=== PATIENT | male | born 1950 | race African-American/Black ===

== ENCOUNTER 2016-09-30 08:13 | Emergency (ER) | payer OTHER ==
[~2016-09-30] VITALS: Ht 162.6 cm; Wt 58.0 kg
[~2016-09-30 08:13] MED LIST: CEPH500C3 PO; LISI-360 PO; METF500 PO; NAPR500 PO; ZOCO40TA PO
[2016-09-30 08:14] VITALS: BP 147/79; PULSE 76; RESP 15; TEMP 98.1; O2SAT 98
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
--- NOTE | 2016-09-30 09:20 | RADRPT ---
EXAM DATE/TIME: 09/30/2016 08:51 [facility] COMPARISON: No previous studies available for comparison. INDICATIONS : Right foot pain. MEDICAL HISTORY : None. SURGICAL HISTORY : None. ENCOUNTER: Initial ACUITY: 1 day PAIN SCORE: 10/10 LOCATION: Right Foot. FINDINGS: Three view examination of the right foot demonstrates no soft tissue swelling, dislocation, or fractu re. The tarsal bones appear intact. The interphalangeal and metatarsophalangeal joints are intact. The calcaneus is intact. Bony mineralization is normal. CONCLUSION: Negative for fracture or dislocation. Followup in 7-10 days is suggested if symptoms persist.. Ramon Guevara MD FACR on September 30, 2016 at 9:17 Board Certified Radiologist. This report was verified electronically.
[2016-09-30] MEDS ORDERED: NAPR375T PO (09:25)
== END 2016-09-30 09:39 | disposition home or self-care (01) ==
LOC: NEPB 08:13
DX: S93.601A Unspecified sprain of right foot, initial encounter (principal); I10 Essential (primary) hypertension; Y99.9 Unspecified external cause status; F17.210 Nicotine dependence, cigarettes, uncomplicated; W18.30XA Fall on same level, unspecified, initial encounter; Y93.9 Activity, unspecified; Y92.9 Unspecified place or not applicable; Z91.81 History of falling
CPT/HCPCS: 73630; 99283

== ENCOUNTER 2016-10-26 10:02 | Emergency (ER) | payer OTHER ==
[~2016-10-26] VITALS: Ht 170.2 cm; Wt 60.0 kg
[~2016-10-26 10:02] MED LIST changes: -CEPH500C3 PO; -LISI-360 PO; -METF500 PO; +NAPR375T PO; -NAPR500 PO; -ZOCO40TA PO
[2016-10-26 10:04] VITALS: BP 152/85; PULSE 71; RESP 12; TEMP 98.2; O2SAT 100
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
--- NOTE | 2016-10-26 12:35 | RADRPT ---
EXAM DATE/TIME: 10/26/2016 12:37 [facility] COMPARISON: No previous studies available for comparison. INDICATIONS : Right knee pain after falling several days ago. MEDICAL HISTORY : None. SURGICAL HISTORY : None. ENCOUNTER: Initial ACUITY: 3 days PAIN SCORE: 5/10 LOCATION: Right anterior knee. FINDINGS: Four view examination of the right knee demonstrates no evidence of fracture or dislocation. Bony mi neralization is normal. The articular surfaces are intact. The suprapatellar soft tissues have a no rmal configuration. CONCLUSION: Negative trauma study. Omkar Connors MD on October 26, 2016 at 12:33 Board Certified Radiologist. This report was verified electronically.
== END 2016-10-26 13:04 | disposition home or self-care (01) ==
LOC: NEPB 10:02
DX: M25.561 Pain in right knee (principal); F17.210 Nicotine dependence, cigarettes, uncomplicated
CPT/HCPCS: 73564; 99283

== ENCOUNTER 2016-11-08 15:03 | Emergency (ER) | payer OTHER ==
[~2016-11-08] VITALS: Ht 170.2 cm; Wt 60.0 kg
[2016-11-08 15:13] VITALS: BP 158/90; PULSE 73; RESP 15; TEMP 98.5; O2SAT 97
[2016-11-08] MEDS ORDERED: BACT2OIN TOPICAL (15:21)
[2016-11-08] MEDS ORDERED: AUGM875T PO (15:21)
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
[2016-11-08] MEDS ORDERED: TETANUS/DIPHTHERIA TOXOID ADULT 0.5 ML VIAL IM ONE (15:30)
[2016-11-08] MEDS ORDERED: AMOXICILLIN/CLAVULANATE K 875 MG TAB PO ONE (15:30)
== END 2016-11-08 15:41 | disposition home or self-care (01) ==
LOC: NETRI 15:03
DX: S30.812A Abrasion of penis, initial encounter (principal); I10 Essential (primary) hypertension; F17.210 Nicotine dependence, cigarettes, uncomplicated; W50.4XXA Accidental scratch by another person, initial encounter; Y93.89 Activity, other specified; Z23 Encounter for immunization
CPT/HCPCS: 90471; 90714

== ENCOUNTER 2016-11-14 12:46 | Emergency (ER) | payer OTHER ==
[~2016-11-14 12:46] MED LIST changes: +AUGM875T PO; +BACT2OIN TOPICAL; -NAPR375T PO
[2016-11-14 12:48] VITALS: BP 169/89; PULSE 74; RESP 16; TEMP 98.5; O2SAT 98
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
[2016-11-14 14:54] LABS: AUTOMATED NEUTROPHIL # 3.3 TH/MM3 (1.8-7.7); BASOPHIL % 0.7 % (0.0-2.0); EOSINOPHIL # 0.1 TH/MM3 (0-0.4); EOSINOPHIL % 1.9 % (0.0-4.0); HEMATOCRIT 39.2 % (39.0-51.0); HEMO FLAGS DIFF FINAL; LYMPH % 30.8 % (9.0-44.0); LYMPHOCYTE # 1.8 TH/MM3 (1.0-4.8); MEAN CELL VOLUME 91.8 FL (80.0-100.0); MEAN CORPUSCULAR HEMOGLOBIN 30.8 PG (27.0-34.0); MEAN CORPUSCULAR HGB CONC 33.5 % (32.0-36.0); MONO % 9.1 % (0.0-8.0); NEUT % 57.5 % (16.0-70.0); PLATELET COUNT 309 TH/MM3 (150-450); RED BLOOD COUNT 4.27 MIL/MM3 (4.50-5.90); RED CELL DISTRIBUTION WIDTH 12.9 % (11.6-17.2); WHITE BLOOD COUNT 5.7 TH/MM3 (4.0-11.0)
[2016-11-14 15:01] LABS: BLOOD, URINE NEG (NEG); COMMENT (UR) CULT NOT INDICATED; CULTURE IF INDICATED CULT NOT INDICATED; GLUCOSE,URINE NEG (NEG); KETONE, URINE NEG (NEG); MUCUS URINE FEW /lpf (OCC); NITRITE,URINE NEG (NEG); URINE COLOR YELLOW (YELLW/STRAW)
[2016-11-14 15:08] LABS: ALT (GPT) 28 U/L (12-78); ANION GAP 7 MEQ/L (5-15); AST (GOT) 30 U/L (15-37); BICARBONATE 32.4 MEQ/L (21.0-32.0); BLOOD UREA NITROGEN 11 MG/DL (7-18); CHLORIDE 105 MEQ/L (98-107); GLOMERULAR FILTRATION RATE 93 ML/MIN (>89); POTASSIUM 3.9 MEQ/L (3.5-5.1); SODIUM (NA) 144 MEQ/L (136-145)
[2016-11-14 15:10] LABS: ALKALINE PHOSPHATASE 118 U/L (45-117); TOTAL BILIRUBIN ADULT 0.2 MG/DL (0.2-1.0)
--- NOTE | 2016-11-14 16:52 | RADRPT ---
EXAM DATE/TIME: 11/14/2016 15:56 [facility] COMPARISON: No previous studies available for comparison. INDICATIONS : Diarrhea for 5 days. MEDICAL HISTORY : None. SURGICAL HISTORY : None. ENCOUNTER: Initial ACUITY: 4 - 6 days PAIN SCORE: 0/10 LOCATION: Bilateral lower quadrant abdomen FINDINGS: Single frontal supine view of the abdomen demonstrates air within small and large bowel in a nonobstr uctive pattern. No organomegaly or abnormal calcifications are seen. No abnormal mass effect is appre ciated. The visualized bones demonstrates no abnormality. CONCLUSION: No acute abdominal abnormality is identified. Edmundo Casiano MD on November 14, 2016 at 16:50 Board Certified Radiologist. This report was verified electronically.
[2016-11-14] MEDS ORDERED: CEPH-460 PO (17:18)
[2016-11-14] MEDS ORDERED: BACT800T5 PO (17:18)
[2016-11-14] MEDS ORDERED: LOMO2.5T PO (17:18)
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
[2016-11-14] MEDS ORDERED: SULFAMETHOXAZOLE-TRIMETHOPRIM DS 800-160 MG TAB PO ONE (17:30)
[2016-11-14] MEDS ORDERED: CEPHALEXIN MONOHYDRATE 500 MG CAP PO ONE (17:30)
== END 2016-11-14 18:11 | disposition home or self-care (01) ==
LOC: NEPA 12:46
DX: L03.116 Cellulitis of left lower limb (principal); R19.7 Diarrhea, unspecified; I10 Essential (primary) hypertension; Z72.0 Tobacco use; Z86.73 Personal history of transient ischemic attack (TIA), and cerebral infarction without residual deficits
CPT/HCPCS: 74000; 80053; 81001; 85025; 99284

== ENCOUNTER 2017-01-13 10:00 | Emergency (ER) | payer OTHER ==
[~2017-01-13] VITALS: Ht 167.6 cm; Wt 60.0 kg
[~2017-01-13 10:00] MED LIST changes: -AUGM875T PO; -BACT2OIN TOPICAL; +BACT800T5 PO; +CEPH-460 PO; +LOMO2.5T PO
[2017-01-13 10:01] VITALS: BP 174/92; PULSE 65; RESP 14; TEMP 97.9; O2SAT 97
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
--- NOTE | 2017-01-13 10:47 | RADRPT ---
EXAM DATE/TIME: 01/13/2017 10:45 [facility] COMPARISON: No previous studies available for comparison. INDICATIONS : Right foot pain, 2nd digit. MEDICAL HISTORY : None. SURGICAL HISTORY : None. ENCOUNTER: Initial ACUITY: 1 month PAIN SCORE: 10/10 LOCATION: Right Foot, 2nd digit. FINDINGS: Two view examination of the right foot demonstrates no soft tissue swelling, dislocation, or fracture . The calcaneus is intact. Bony mineralization is normal. CONCLUSION: Unremarkable limited examination of the right foot. Edmundo Childs MD on January 13, 2017 at 10:44 Board Certified Radiologist. This report was verified electronically.
[2017-01-13] MEDS ORDERED: BACT800T5 PO (11:36)
== END 2017-01-13 11:48 | disposition home or self-care (01) ==
LOC: NEPD 10:00
DX: L08.9 Local infection of the skin and subcutaneous tissue, unspecified (principal)
CPT/HCPCS: 73620; 99283

== ENCOUNTER 2017-02-04 16:22 | Emergency (ER) | payer OTHER ==
[~2017-02-04] VITALS: Ht 177.8 cm; Wt 75.0 kg
[2017-02-04 16:32] VITALS: BP 152/80; PULSE 88; RESP 16; TEMP 98.2; O2SAT 99
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
[2017-02-04] MEDS ORDERED: ACETAMINOPHEN 325 MG TAB PO ONE (17:30)
--- NOTE | 2017-02-04 18:03 | RADRPT ---
EXAM DATE/TIME: 02/04/2017 17:02 [facility] COMPARISON: No previous studies available for comparison. INDICATIONS : Right foot, second digit pain and swelling. Possible infection. MEDICAL HISTORY : None. SURGICAL HISTORY : None. ENCOUNTER: Initial ACUITY: 1 week PAIN SCORE: 10/10 LOCATION: Right foot, second digit. FINDINGS: There is some soft-tissue swelling about the 2nd digit. I see no obvious bony destruction to suggest osteomyelitis at this point. There is some subcutaneous calcifications about the 3rd digit again without bony destruction. CONCLUSION: Soft-tissue swelling calcification with swelling without bony destruction. Ramon Guevara MD FACR on February 04, 2017 at 17:59 Board Certified Radiologist. This report was verified electronically.
[2017-02-04] MEDS ORDERED: BACT800T5 PO (18:21)
== END 2017-02-04 18:41 | disposition home or self-care (01) ==
LOC: NEPK 16:22
DX: S99.921A Unspecified injury of right foot, initial encounter (principal); S50.311A Abrasion of right elbow, initial encounter; I10 Essential (primary) hypertension; F17.200 Nicotine dependence, unspecified, uncomplicated; Z86.79 Personal history of other diseases of the circulatory system; W01.0XXA Fall on same level from slipping, tripping and stumbling without subsequent striking against object, initial encounter
CPT/HCPCS: 73660; 99283

== ENCOUNTER 2017-03-22 08:48 | Emergency (ER) | payer OTHER ==
[~2017-03-22] VITALS: Ht 177.8 cm; Wt 57.0 kg
[~2017-03-22 08:48] MED LIST changes: -CEPH-460 PO; -LOMO2.5T PO
[2017-03-22 08:49] VITALS: BP 149/76; PULSE 76; RESP 20; TEMP 98.8; O2SAT 99
[2017-03-22] MEDS ORDERED: ACETAMINOPHEN 325 MG TAB PO ONE (09:30)
[2017-03-22 10:05] VITALS: BP 157/75; PULSE 78; RESP 16; O2SAT 98
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
--- NOTE | 2017-03-22 11:28 | RADRPT ---
EXAM DATE/TIME: 03/22/2017 10:32 [facility] COMPARISON: FOOT RIGHT LIMITED (2VWS), January 13, 2017, 10:45. FOOT RIGHT COMPLETE ([id number]), September 30, 2016, 8:5 1. INDICATIONS : Right foot pain post fall. MEDICAL HISTORY : None. SURGICAL HISTORY : None. ENCOUNTER: Initial ACUITY: 1 day PAIN SCORE: 6/10 LOCATION: Right Foot FINDINGS: Three view examination of the right foot demonstrates no soft tissue swelling, dislocation, or fractu re. The tarsal bones appear intact. The interphalangeal and metatarsophalangeal joints are intact. The calcaneus is intact. Bony mineralization is normal. CONCLUSION: Unremarkable examination of the right foot. Darian Downing Jr., MD on March 22, 2017 at 11:24 Board Certified Radiologist. This report was verified electronically.
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
--- NOTE | 2017-03-22 11:45 | RADRPT ---
EXAM DATE/TIME: 03/22/2017 10:50 [facility] COMPARISON: No previous studies available for comparison. INDICATIONS : Right shoulder pain post fall. MEDICAL HISTORY : None. SURGICAL HISTORY : None. ENCOUNTER: Initial ACUITY: 1 day PAIN SCORE: 6/10 LOCATION: Right Shoulder FINDINGS: No definite fractures, or dislocations are identified. No definite lytic or sclerotic lesion is seen . The joint space is well maintained. CONCLUSION: Unremarkable study. Mahendra Whipple MD on March 22, 2017 at 11:43 Board Certified Radiologist. This report was verified electronically.
== END 2017-03-22 12:51 | disposition home or self-care (01) ==
LOC: NEPD 08:48
DX: S50.312A Abrasion of left elbow, initial encounter (principal); S60.511A Abrasion of right hand, initial encounter; M25.511 Pain in right shoulder; M79.671 Pain in right foot; I69.951 Hemiplegia and hemiparesis following unspecified cerebrovascular disease affecting right dominant side; I10 Essential (primary) hypertension; F17.200 Nicotine dependence, unspecified, uncomplicated; W19.XXXA Unspecified fall, initial encounter
CPT/HCPCS: 73030; 73130; 73630; 99284

== ENCOUNTER 2017-03-31 13:00 | Emergency (ER) | payer OTHER ==
[~2017-03-31] VITALS: Ht 170.2 cm; Wt 60.0 kg
[2017-03-31 13:13] VITALS: BP 137/81; PULSE 84; RESP 14; TEMP 98.3; O2SAT 97
== END 2017-03-31 15:37 | disposition left against medical advice (07) ==
LOC: NEDAMB 13:00
DX: Z53.9 Procedure and treatment not carried out, unspecified reason (principal)
CPT/HCPCS: 99281

== ENCOUNTER 2017-06-13 10:40 | Observation (INO) | payer OTHER ==
[~2017-06-13] VITALS: Ht 170.2 cm; Wt 57.0 kg
[2017-06-13 10:51] VITALS: BP 153/80; PULSE 60; RESP 14; TEMP 98.7; O2SAT 100
[2017-06-13] MEDS ORDERED: OXYC-404 PO (10:57)
[2017-06-13] MEDS ORDERED: BP MED PO (10:57)
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
[2017-06-13] MEDS ORDERED: SODIUM CHLOR 0.9% 1000 ML INJ 1,000 ML IV ONE (11:13)
[2017-06-13] MEDS ORDERED: SODIUM CHLORIDE 0.9% FLUSH 10 ML FLUSH IVF PRN (11:15)
[2017-06-13 11:46] LABS: AUTOMATED NEUTROPHIL # 4.4 TH/MM3 (1.8-7.7); BASOPHIL % 0.5 % (0.0-2.0); EOSINOPHIL # 0.1 TH/MM3 (0-0.4); EOSINOPHIL % 1.8 % (0.0-4.0); HEMATOCRIT 39.9 % (39.0-51.0); HEMO FLAGS DIFF FINAL; LYMPH % 25.8 % (9.0-44.0); LYMPHOCYTE # 1.8 TH/MM3 (1.0-4.8); MEAN CELL VOLUME 94.4 FL (80.0-100.0); MEAN CORPUSCULAR HEMOGLOBIN 31.5 PG (27.0-34.0); MEAN CORPUSCULAR HGB CONC 33.3 % (32.0-36.0); MONO % 7.1 % (0.0-8.0); NEUT % 64.8 % (16.0-70.0); PLATELET COUNT 234 TH/MM3 (150-450); RED BLOOD COUNT 4.23 MIL/MM3 (4.50-5.90); RED CELL DISTRIBUTION WIDTH 12.6 % (11.6-17.2); WHITE BLOOD COUNT 6.8 TH/MM3 (4.0-11.0)
--- NOTE | 2017-06-13 11:54 | RADRPT ---
EXAM DATE/TIME: 06/13/2017 11:31 [facility] COMPARISON: No previous studies available for comparison. INDICATIONS : Cough. MEDICAL HISTORY : Stroke. Hypertension SURGICAL HISTORY : None. ENCOUNTER: Initial ACUITY: 2 days PAIN SCORE: 0/10 LOCATION: Bilateral chest FINDINGS: The cardiac silhouette is normal in transverse diameter. The lungs are free of acute parenchymal opac ity. No effusions are identified. There are surgical clips in the left axilla. The aortic knob is pro minent with tortuosity of the descending thoracic aorta. CONCLUSION: 1. No acute cardiopulmonary disease. Minesh Torres MD on June 13, 2017 at 11:52 Board Certified Radiologist. This report was verified electronically.
[2017-06-13 11:56] LABS: APTT (PATIENT) 29.2 SEC (24.3-30.1); PROTHROMBIN TIME - PATIENT 10.7 SEC (9.8-11.6)
--- NOTE | 2017-06-13 11:56 | RADRPT ---
EXAM DATE/TIME: 06/13/2017 11:34 [facility] COMPARISON: No previous studies available for comparison. INDICATIONS : Left hip pain, fall. MEDICAL HISTORY : None. SURGICAL HISTORY : None. ENCOUNTER: Initial ACUITY: 1 day PAIN SCORE: 6/10 LOCATION: Left proximal hip FINDINGS: Examination of the left hip was performed with AP Pelvis. The primary and secondary trabecular patte rn of the femoral neck is intact. The hip joint is of normal width without significant sclerosis or bony hypertrophy. The acetabulum is grossly intact. CONCLUSION: 1. No acute fracture or dislocation. Amado Arceo MD on June 13, 2017 at 11:54 Board Certified Radiologist. This report was verified electronically.
[2017-06-13 11:59] LABS: ALT (GPT) 24 U/L (12-78); ANION GAP 6 MEQ/L (5-15); AST (GOT) 27 U/L (15-37); BLOOD UREA NITROGEN 8 MG/DL (7-18); CHLORIDE 107 MEQ/L (98-107); GLOMERULAR FILTRATION RATE 104 ML/MIN (>89); POTASSIUM 4.3 MEQ/L (3.5-5.1); SODIUM (NA) 142 MEQ/L (136-145)
[2017-06-13 12:03] LABS: ALKALINE PHOSPHATASE 114 U/L (45-117); CREATINE KINASE 227 U/L (39-308); TOTAL BILIRUBIN ADULT 0.5 MG/DL (0.2-1.0)
[2017-06-13 12:16] LABS: CKMB 1.9 NG/ML (0.5-3.6)
--- NOTE | 2017-06-13 12:16 | RADRPT ---
EXAM DATE/TIME: 06/13/2017 11:57 [facility] COMPARISON: No previous studies available for comparison. INDICATIONS : Increased weakness and slurred speech over last few weeks. RADIATION DOSE: 32.53 CTDIvol (mGy) MEDICAL HISTORY : Cardiovascular disease. Hypertension. SURGICAL HISTORY : None. ENCOUNTER: Initial ACUITY: 1 day PAIN SCALE: 0/10 LOCATION: cranial TECHNIQUE: Multiple contiguous axial images were obtained of the head. Using automated exposure control and adj ustment of the mA and/or kV according to patient size, radiation dose was kept as low as reasonably a chievable to obtain optimal diagnostic quality images. DICOM format image data is available electro nically for review and comparison. FINDINGS: There is an old lacunar infarct in the left putamen. There is no evidence of acute infarction. No breanna dence of intracranial mass or hemorrhage. Brainstem and posterior fossa structures are unremarkable. The extracranial structures are benign and intact. CONCLUSION: No acute intracranial findings Edmundo Childs MD on June 13, 2017 at 12:12 Board Certified Radiologist. This report was verified electronically.
[2017-06-13 13:29] LABS: BLOOD, URINE NEG (NEG); COMMENT (UR) CULT NOT INDICATED; CULTURE IF INDICATED CULT NOT INDICATED; GLUCOSE,URINE NEG (NEG); KETONE, URINE NEG (NEG); NITRITE,URINE NEG (NEG); URINE COLOR YELLOW (YELLW/STRAW)
[2017-06-13 13:49] VITALS: BP 190/98; PULSE 66; RESP 16; O2SAT 99
[2017-06-13] MEDS ORDERED: SENNOSIDES 8.6 MG TAB PO PRN (14:00)
[2017-06-13] MEDS ORDERED: SODIUM CHLORIDE 0.9% FLUSH 10 ML FLUSH IV FLUSH PRN (14:00)
[2017-06-13] MEDS ORDERED: MAGNESIUM HYDROXIDE SUSP 30 ML CUP PO PRN (14:00)
[2017-06-13] MEDS ORDERED: ONDANSETRON HCL 4 MG/2 ML VIAL IVP PRN (14:00)
[2017-06-13] MEDS ORDERED: NALOXONE HCL 0.4 MG/ML AMP IV PUSH PRN (14:00)
[2017-06-13] MEDS ORDERED: LACTULOSE SYRUP 20 GM/30 ML CUP PO PRN (14:00)
[2017-06-13] MEDS ORDERED: BISACODYL 10 MG SUPP RECTAL PRN (14:00)
[2017-06-13 14:44] VITALS: BP 190/96; PULSE 65; RESP 14; O2SAT 100
[2017-06-13] MEDS ORDERED: LISI10TA3 PO (14:51)
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
[2017-06-13 15:00] VITALS: BP 170/87
[2017-06-13] MEDS ORDERED: cloNIDine HCL 0.1 MG TAB PO PRN (15:15)
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
[2017-06-13 16:27] VITALS: BP_SYST 164; BP_SYST 168; BP_DIAS 74; BP_DIAS 79; PULSE 72; RESP 18; TEMP 99.1; O2SAT 100
[2017-06-13 19:32] VITALS: BP 143/82; PULSE 74; RESP 18; TEMP 99.8; O2SAT 98
[2017-06-13] MEDS: SODIUM CHLORIDE 0.9% FLUSH 10 ML FLUSH IV FLUSH SCH (20:03)
[2017-06-13] MEDS: ACETAMINOPHEN/HYDROcodone 325 MG/7.5 MG TAB PO PRN (20:03)
[2017-06-14 00:44] VITALS: BP 124/75; PULSE 59; RESP 18; TEMP 98.4; O2SAT 97
[2017-06-14 04:06] VITALS: BP 124/69; PULSE 67; RESP 17; TEMP 98.1; O2SAT 98
[2017-06-14 08:35] LABS: AUTOMATED NEUTROPHIL # 3.3 TH/MM3 (1.8-7.7); BASOPHIL % 0.5 % (0.0-2.0); EOSINOPHIL # 0.2 TH/MM3 (0-0.4); EOSINOPHIL % 3.3 % (0.0-4.0); HEMATOCRIT 38.9 % (39.0-51.0); HEMO FLAGS DIFF FINAL; LYMPH % 37.3 % (9.0-44.0); LYMPHOCYTE # 2.4 TH/MM3 (1.0-4.8); MEAN CORPUSCULAR HEMOGLOBIN 31.2 PG (27.0-34.0); MEAN CORPUSCULAR HGB CONC 33.2 % (32.0-36.0); MONO % 7.3 % (0.0-8.0); NEUT % 51.6 % (16.0-70.0); PLATELET COUNT 218 TH/MM3 (150-450); RED BLOOD COUNT 4.14 MIL/MM3 (4.50-5.90); RED CELL DISTRIBUTION WIDTH 12.8 % (11.6-17.2); WHITE BLOOD COUNT 6.3 TH/MM3 (4.0-11.0)
[2017-06-14 08:40] VITALS: BP_SYST 122; BP_SYST 128; BP_DIAS 83; BP_DIAS 89; PULSE 54; RESP 20; TEMP 96.3; O2SAT 93
[2017-06-14 08:48] LABS: ALT (GPT) 21 U/L (12-78); ANION GAP 4 MEQ/L (5-15); AST (GOT) 23 U/L (15-37); BICARBONATE 28.6 MEQ/L (21.0-32.0); BLOOD UREA NITROGEN 9 MG/DL (7-18); CHLORIDE 107 MEQ/L (98-107); GLOMERULAR FILTRATION RATE 121 ML/MIN (>89); POTASSIUM 4.1 MEQ/L (3.5-5.1); SODIUM (NA) 140 MEQ/L (136-145)
[2017-06-14 08:51] LABS: ALKALINE PHOSPHATASE 91 U/L (45-117); TOTAL BILIRUBIN ADULT 0.6 MG/DL (0.2-1.0)
--- NOTE | 2017-06-14 10:31 | HHI.PR ---
Subjective Remarks Follow-up for weakness, falls, and dizziness. The patient denies any further dizziness. He has no acute complaints today. He still has some pain in his right leg. He states the month is May, does not know the year, states. [place]. Currently he would be agreeable for rehabilitation, although ultimately wants to go home. Objective Vitals Vital Signs Date Time Temp Pulse Resp B/P (MAP) Pulse Ox O2 Delivery O2 Flow Rate FiO2 06/14/17 08:40 96.3 54 20 122/83 (96) 93 121/71 (88) 128/89 (102) 06/14/17 04:06 98.1 67 17 124/69 (87) 98 06/14/17 00:44 98.4 59 18 124/75 (91) 97 06/13/17 19:32 99.8 74 18 143/82 (102) 98 06/13/17 16:27 99.1 72 18 168/79 (108) 100 164/74 (104) 06/13/17 15:00 170/87 (114) 06/13/17 14:44 65 14 190/96 (127) 100 Room Air 06/13/17 13:49 66 16 190/98 (128) 99 Room Air 06/13/17 10:51 98.7 60 14 153/80 (104) 100 I/O 06/13/17 06/13/17 06/13/17 06/14/17 06/14/17 06/14/17 07:00 15:00 23:00 07:00 15:00 23:00 Intake Total 1000 ml Output Total 200 ml Balance 1000 ml -200 ml Intake IV Total 1000 ml Output Urine Total 200 ml Result Diagram: 06/14/1772506/14/17725 Imaging Last Impressions Hip and Pelvis X-Ray 06/13/171112 Signed Impressions: Service Date/Time: Tuesday, June 13, 2017 11:34 - CONCLUSION: 1. No acute fracture or dislocation. Amado Arceo MD Head CT 06/13/171112 Signed Impressions: Service Date/Time: Tuesday, June 13, 2017 11:57 - CONCLUSION: No acute intracranial findings Edmundo Childs MD Chest X-Ray 06/13/171112 Signed Impressions: Service Date/Time: Tuesday, June 13, 2017 11:31 - CONCLUSION: 1. No acute cardiopulmonary disease. Minesh Torres MD Carotid Artery Ultrasound 06/13/17 0000 Signed Impressions: Service Date/Time: Tuesday, June 13, 2017 15:20 - CONCLUSION: 1. Mild circumferential noncalcified common carotid artery plaque. 2. No significant carotid artery stenosis. 3. Antegrade vertebral artery flow bilaterally. Amado Arceo MD Objective Remarks GENERAL: Well-developed well-nourished. In no acute distress. Partially disoriented to time. SKIN: Warm and dry. Right lateral ankle with healing scab. HEENT: Normocephalic. Pupils equal and round. Mucous membranes pink and moist. CARDIOVASCULAR: Regular rate and rhythm. No murmur appreciated. RESPIRATORY: No accessory muscle use. Clear to auscultation. Breath sounds equal bilaterally. GASTROINTESTINAL: Abdomen soft, non-tender, nondistended. Bowel sounds x4. MUSCULOSKELETAL: No obvious deformities. No clubbing or cyanosis. No edema. NEUROLOGICAL: Awake and alert. No focal neurological deficits. Moves upper and lower extremities spontaneously. Normal speech. PSYCHIATRIC: Appropriate mood and affect; insight and judgment fair. A/P Assessment and Plan 67-year-old male with past medical history of CVA with residual right side weakness, HTN who presented for falls Generalized weakness and falls: Seems more secondary to chronic right-sided weakness and deconditioning rather than an acute process. Reviewed: Vital signs essentially unremarkable except for hypertension. Head CT with no acute intracranial findings. Hip x-ray and acute fracture or dislocation. Labs, UA, chest x-ray all essentially unremarkable. Non- orthostatic. Carotid ultrasound with no significant stenosis. -Given IVF in the ED -Echocardiogram pending -PT/OT/ST -Consulted case management for assistance with discharge disposition, discussed with CM/PT, agree patient is not safe to go home and will need SNF Hypertension: Currently accelerated. Patient has symptoms consistent with orthostasis. Lisinopril held and BP is reasonably controlled. -Hold lisinopril for now -Clonidine as needed Chronic pain: Patient reports "all over" pain. He states he is on pain medicine at home. Review of [place] does show the patient's PCP Dr. Farmer has been prescribing him [place] 7/. -Continue [place] as needed History of CVA: Residual right-sided weakness on exam. Head CT as above. -Started daily aspirin -Check Lipid profile DVT prophylaxis: SCDs Discharge Planning Needs SNF. Nabor Boyle Jun 14, 2017 10:31
[2017-06-14] MEDS: ASPIRIN 81 MG CHEW TAB CHEW SCH (12:07)
[2017-06-14] MEDS: SODIUM CHLORIDE 0.9% FLUSH 10 ML FLUSH IV FLUSH SCH ×2 (12:07→19:57)
[2017-06-14 12:17] VITALS: BP 144/80; PULSE 67; RESP 18; TEMP 96.6; O2SAT 98
[2017-06-14] MEDS: ACETAMINOPHEN/HYDROcodone 325 MG/7.5 MG TAB PO PRN ×2 (12:19→19:56)
[2017-06-14 14:17] LABS: HDL CHOLESTEROL 38.2 MG/DL (40.0-60.0)
--- NOTE | 2017-06-14 14:32 | EKG ---
Date Performed: 06/13/2017 Time Performed: 12:11:12 PTAGE: 67 years EKG: SINUS BRADYCARDIA BORDERLINE ECG PREVIOUS TRACING : 04/20/2015 10.51 DOCTOR: Haseeb Ann Interpretating Date/Time 06/14/2017 14:31:59
--- NOTE | 2017-06-14 15:36 | ECHRPT ---
Indication: syncope CONCLUSIONS The left ventricular systolic function is normal with an estimated ejection fraction in the range of 60-65%. Normal left ventricular size. Wall thickness is normal. No regional wall motion abnormalities are present. Trace valve regurgitation. There is trace tricuspid valve regurgitation. The estimated pulmonary arterial pressure is 29 mmHg. There is a small pericardial effusion present. The pericardial effusion is primarily located posteriorly. BP: 124 / 69 HR: 67 Rhythm: Sinus MEASUREMENTS (Male / Female) Normal Values Technical Quality:Fair 2D ECHO LV Diastolic Diameter PLAX 3.4 cm 4.2 - 5.9 / 3.9 - 5.3 cm LV Systolic Diameter PLAX 2.3 cm IVS Diastolic Thickness 1.1 cm 0.6 - 1.0 / 0.6 - 0.9 cm LVPW Diastolic Thickness 1.1 cm 0.6 - 1.0 / 0.6 - 0.9 cm LV Relative Wall Thickness 0.7 RV Internal Dim ED PLAX 2.5 cm LVOT Diameter 2.2 cm LA Systolic Diameter LX 2.7 cm 3.0 - 4.0 / 2.7 - 3.8 cm LV Ejection Fraction MOD 4C 64.4 % LV Cardiac Index MOD 4C 1931.1 cm/minm LV Ejection Fraction 4C AL 64.9 % LV Cardiac Index 4C AL 1917.8 cm/minm M-MODE Aortic Root Diameter MM 3.3 cm AV Cusp Separation MM 2.3 cm DOPPLER AV Peak Velocity 103.0 cm/s AV Peak Gradient 4.2 mmHg LVOT Peak Velocity 82.9 cm/s LVOT Peak Gradient 2.7 mmHg AV Area Cont Eq pk 3.1 cm MV Area PHT 2.9 cm Mitral E Point Velocity 68.1 cm/s Mitral A Point Velocity 56.8 cm/s Mitral E to A Ratio 1.2 LV E' Lateral Velocity 8.2 cm/s Mitral E to LV E' Lateral Ratio 8.3 LV E' Septal Velocity 6.7 cm/s Mitral E to LV E' Septal Ratio 10.1 TR Peak Velocity 221.0 cm/s TR Peak Gradient 19.5 mmHg Right Atrial Pressure 10.0 mmHg Pulmonary Artery Systolic Pressu 29.5 mmHg Right Ventricular Systolic Press 29.5 mmHg FINDINGS LEFT VENTRICLE The left ventricular systolic function is normal with an estimated ejection fraction in the range of 60-65%. Normal left ventricular size. Wall thickness is normal. No regional wall motion abnormalities are present. RIGHT VENTRICLE Normal right ventricular size and systolic function. LEFT ATRIUM The left atrial size is normal. RIGHT ATRIUM The right atrial size is normal. ATRIAL SEPTUM Normal atrial septal thickness without atrial level shunting by limited color doppler interrogation. AORTA The aortic root and proximal ascending aorta are normal in size on limited imaging. MITRAL VALVE Trace valve regurgitation. AORTIC VALVE Trileaflet aortic valve. No aortic valve stenosis or regurgitation. TRICUSPID VALVE There is trace tricuspid valve regurgitation. The estimated pulmonary arterial pressure is 29.5 mmHg. PULMONARY VALVE No pulmonary valve regurgitation or stenosis. VESSELS The inferior vena cava is normal in size. PERICARDIUM There is a small pericardial effusion present. The pericardial effusion is primarily located posteriorly. Katie Shabazz MD, FACC (Electronically Signed) Final Date:14 June 2017 15:35
[2017-06-14 15:49] VITALS: BP 130/75; PULSE 54; RESP 20; TEMP 96.2; O2SAT 99
[2017-06-14 21:27] VITALS: BP 124/71; PULSE 51; RESP 18; TEMP 98.1; O2SAT 98
[2017-06-15] VITALS: BP 118/71; PULSE 57; RESP 20; TEMP 97.9; O2SAT 97
[2017-06-15 04:00] VITALS: BP 121/68; PULSE 60; RESP 20; TEMP 97.8; O2SAT 97
[2017-06-15] MEDS: ASPIRIN 81 MG CHEW TAB CHEW SCH (08:19)
[2017-06-15] MEDS: SODIUM CHLORIDE 0.9% FLUSH 10 ML FLUSH IV FLUSH SCH (08:20)
[2017-06-15 08:30] VITALS: BP_SYST 124; BP_SYST 125; BP_DIAS 66; BP_DIAS 70; PULSE 51; RESP 18; TEMP 98.6; O2SAT 98
--- NOTE | 2017-06-15 09:51 | HHI.PR ---
Subjective Remarks Follow up for weakness, falls, dizziness. The patient reports feeling weak again today. He states he's fallen 3 times recently. He agrees he likely needs rehab. Denies any dizziness or lightheadedness. He is eating and drinking well. He is oriented to [facility], but does not know the date. Denies any other medical complaints at this time. Objective Vitals Vital Signs Date Time Temp Pulse Resp B/P (MAP) Pulse Ox O2 Delivery O2 Flow Rate FiO2 06/15/17 08:30 98.6 51 18 125/70 (88) 98 124/66 (85) 06/15/17 04:00 97.8 60 20 121/68 (85) 97 06/15/17 00:00 97.9 57 20 118/71 (87) 97 06/14/17 21:27 98.1 51 18 124/71 (88) 98 06/14/17 15:49 96.2 54 20 130/75 (93) 99 06/14/17 12:17 96.6 67 18 144/80 (101) 98 I/O 06/14/17 06/14/17 06/14/17 06/15/17 06/15/17 06/15/17 07:00 15:00 23:00 07:00 15:00 23:00 Output Total 900 ml 500 ml Balance -900 ml -500 ml Output Urine Total 900 ml 500 ml # Bowel Movements 0 Result Diagram: 06/14/1772506/14/17725 Imaging Last Impressions Hip and Pelvis X-Ray 06/13/171112 Signed Impressions: Service Date/Time: Tuesday, June 13, 2017 11:34 - CONCLUSION: 1. No acute fracture or dislocation. Amado Arceo MD Head CT 06/13/17 111 Signed Impressions: Service Date/Time: Tuesday, June 13, 2017 11:57 - CONCLUSION: No acute intracranial findings Edmundo Childs MD Chest X-Ray 06/13/171112 Signed Impressions: Service Date/Time: Tuesday, June 13, 2017 11:31 - CONCLUSION: 1. No acute cardiopulmonary disease. Minesh Torres MD Carotid Artery Ultrasound 06/13/17 0000 Signed Impressions: Service Date/Time: Tuesday, June 13, 2017 15:20 - CONCLUSION: 1. Mild circumferential noncalcified common carotid artery plaque. 2. No significant carotid artery stenosis. 3. Antegrade vertebral artery flow bilaterally. Amado Arceo MD Objective Remarks GENERAL: Well-nourished, well-developed pleasant male patient in [facility]. SKIN: Warm and dry. No rash. HEENT: Normocephalic. Atraumatic. Pupils equal and round. Mucous membranes pink and moist. CARDIOVASCULAR: Regular rate and rhythm. S1, S2 noted. No murmur appreciated. RESPIRATORY: No accessory muscle use. Clear to auscultation. Breath sounds equal bilaterally. GASTROINTESTINAL: Abdomen soft, non-tender, nondistended. Normoactive bowel sounds x4. MUSCULOSKELETAL: No obvious deformities. Extremities without clubbing, cyanosis , or edema. NEUROLOGICAL: Awake and alert. No obvious cranial nerve deficits. 2/5 strength RUE/RLE, 5/5 strength LUE, 4/5 strength LLE. Normal speech. PSYCHIATRIC: Appropriate mood and affect; insight and judgment fair. Medications and IVs Current Medications Medications (Trade) Dose Ordered Sig/Sarah Route Start Time Stop Time Status Last Admin (NS Flush) 2 ml UNSCH PRN IV FLUSH 06/13/17 14:00 (NS Flush) 2 ml BID IV FLUSH 06/13/17 21:00 06/15/17 08:20 (Zofran Inj) 4 mg Q6H PRN IVP 06/13/17 14:00 (Narcan Inj) 0.4 mg UNSCH PRN IV PUSH 06/13/17 14:00 (Milk Of Magnesia Liq) 30 ml Q12H PRN PO 06/13/17 14:00 (Senokot) 17.2 mg Q12H PRN PO 06/13/17 14:00 (Dulcolax Supp) 10 mg DAILY PRN RECTAL 06/13/17 14:00 (Lactulose Liq) 30 ml DAILY PRN PO 06/13/17 14:00 (Catapres) 0.1 mg Q6H PRN PO 06/13/17 15:15 ([place] 7.5-325 Mg) 1 tab Q4H PRN PO 06/13/17 15:15 06/14/17 19:56 (Aspirin Chew) 81 mg DAILY CHEW 06/14/17 09:00 06/15/17 08:19 A/P Assessment and Plan 67-year-old male with past medical history of CVA with residual right side weakness, HTN who presented for falls Generalized weakness and falls: Seems more secondary to chronic right-sided weakness and deconditioning rather than an acute process. Reviewed: Vital signs essentially unremarkable except for hypertension. Head CT with no acute intracranial findings. Hip x-ray and acute fracture or dislocation. Labs, UA, CXR all essentially unremarkable. Non-orthostatic. Carotid ultrasound with no significant stenosis. -Given IVF in the ED -Echocardiogram with normal systolic function, EF 60-65%, trace TR, small pericardial effusion posteriorly -PT/OT/ST -Consulted case management for assistance with discharge planning, agrees patient is not safe to go home and will need SNF Accelerated Hypertension: BP 190/98 upon arrival. Patient has symptoms consistent with orthostasis. Lisinopril held and BP is reasonably controlled. -Continue to hold lisinopril for now as BP well controlled in 120s/70s without any antihypertensives -Clonidine as needed Chronic pain: Patient reports "all over" pain. He states he is on pain medicine at home. Review of [place] does show the patient's PCP Dr. Farmer has been prescribing him [place] 7/325. -Continue [place] as needed History of CVA: Residual right-sided weakness on exam. Head CT as above. -Started daily aspirin -Lipid profile wnl DVT prophylaxis: SCDs Discharge Planning Case management assisting with SNF placement. 1600hrs: Patient accepted to [facility]. Will discharge. Discussed with case management. Discharge patient to SNF Condition on discharge: Stable Heart Healthy Diet as tolerated Ad Roxanna activity Rx written: [place] 7.5/325mg q6h prn #12, discontinued lisinopril Follow-up with primary care physician within 1 week Ritu Gonzalez PA-C Jun 15, 2017 09:51
[2017-06-15 15:26] VITALS: BP 119/65; PULSE 54; RESP 18; TEMP 98.7; O2SAT 97
[2017-06-15] MEDS ORDERED: HYDR-3580 PO ×2 (15:58→16:06)
--- NOTE | 2017-06-15 16:18 | HHI.DCPOC ---
Discharge Care Plan Diagnosis: (1) Recurrent falls while walking (2) History of CVA with residual deficit (3) Weakness generalized Goals to Promote Your Health * To prevent worsening of your condition and complications * To maintain your health at the optimal level Directions to Meet Your Goals Take your medications as prescribed Follow your dietary instruction Follow activity as directed Keep your appointments as scheduled Take your immunizations and boosters as scheduled If your symptoms worsen call your PCP, if no PCP go to Urgent Care Center or Emergency Room Smoking is Dangerous to Your Health. Avoid second hand smoke Call the 24-hour hour crisis hotline for domestic abuse at Ritu Gonzalez PA-C Jun 15, 2017 4:18 pm
--- NOTE | 2017-06-27 14:47 | HHI.DS ---
Discharge Summary Admission Date Jun 13, 2017 at 13:58 Discharge Date: Jun 15, 2017 Admitting Diagnosis Frequent Falls/Weakness (1) Fall ICD Code: W19.XXXA - Unspecified fall, initial encounter Diagnosis: Principal Status: Acute (2) History of CVA with residual deficit ICD Code: I69.30 - Unspecified sequelae of cerebral infarction Diagnosis: Principal Status: Acute Procedures None. Brief History - From Admission 67-year-old male with past medical history of CVA with residual right side weakness, HTN who presented for falls. Patient is not a good historian. RN and at bedside. Reportedly the patient's neighbors called paramedics because the patient has been having falls. The patient is not oriented to time. He does state that he lives alone. The patient states that he wants to go home, but does admit that he needs help there and cannot manage alone. Currently the patient complains of pain all over, worse in his right lateral ankle. He states that the pain has been present for 4 weeks and is improved by his pain medicine. He denies any fevers or chills. He states occasionally he gets dizzy especially when he tries to get up too fast. He does state that he lost consciousness about 3 days ago. The patient was not able to ambulate in the ED and he was admitted for placement. Imaging Last Impressions Hip and Pelvis X-Ray 06/13/171112 Signed Impressions: Service Date/Time: Tuesday, June 13, 2017 11:34 - CONCLUSION: 1. No acute fracture or dislocation. Amado Arceo MD Head CT 06/13/17 1113 Signed Impressions: Service Date/Time: Tuesday, June 13, 2017 11:57 - CONCLUSION: No acute intracranial findings Edmundo Childs MD Chest X-Ray 06/13/173 Signed Impressions: Service Date/Time: Tuesday, June 13, 2017 11:31 - CONCLUSION: 1. No acute cardiopulmonary disease. Minesh Torres MD Carotid Artery Ultrasound 06/13/17 0000 Signed Impressions: Service Date/Time: Tuesday, June 13, 2017 15:20 - CONCLUSION: 1. Mild circumferential noncalcified common carotid artery plaque. 2. No significant carotid artery stenosis. 3. Antegrade vertebral artery flow bilaterally. Amado Arceo MD PE at Discharge GENERAL: Well-nourished, well-developed pleasant male patient in [facility]. SKIN: Warm and dry. No rash. HEENT: Normocephalic. Atraumatic. Pupils equal and round. Mucous membranes pink and moist. CARDIOVASCULAR: Regular rate and rhythm. S1, S2 noted. No murmur appreciated. RESPIRATORY: No accessory muscle use. Clear to auscultation. Breath sounds equal bilaterally. GASTROINTESTINAL: Abdomen soft, non-tender, nondistended. Normoactive bowel sounds x4. MUSCULOSKELETAL: No obvious deformities. Extremities without clubbing, cyanosis , or edema. NEUROLOGICAL: Awake and alert. No obvious cranial nerve deficits. 2/5 strength RUE/RLE, 5/5 strength LUE, 4/5 strength LLE. Normal speech. PSYCHIATRIC: Appropriate mood and affect; insight and judgment fair. Hospital Course 67-year-old male with past medical history of CVA with residual right side weakness, HTN who presented for falls Generalized weakness and falls: Seems more secondary to chronic right-sided weakness and deconditioning rather than an acute process. Reviewed: Vital signs essentially unremarkable except for hypertension. Head CT with no acute intracranial findings. Hip x-ray and acute fracture or dislocation. Labs, UA, CXR all essentially unremarkable. Non-orthostatic. Carotid ultrasound with no significant stenosis. Given IVF in the ED. Echocardiogram with normal systolic function, EF 60-65%, trace TR, small pericardial effusion posteriorly. PT/OT/ST , recommended SNF. Consulted case management for assistance with discharge planning, agrees patient is not safe to go home and will need SNF. Patient discharged to [facility]. Accelerated Hypertension: BP 190/98 upon arrival. Patient has symptoms consistent with orthostasis. Lisinopril held and BP is reasonably controlled. Continue to hold lisinopril for now as BP well controlled in 120s/70s without any antihypertensives. Clonidine as needed. Chronic pain: Patient reports "all over" pain. He states he is on pain medicine at home. Review of [place] does show the patient's PCP Dr. Farmer has been prescribing him [place] 7/325. Continue [place] as needed, pain improved. History of CVA: Residual right-sided weakness on exam. Head CT as above. Started daily aspirin. Lipid profile wnl. Patient accepted to [facility]. Discussed with case management. Pt Condition on Discharge: Stable Discharge Disposition: Discharge to SNF Discharge Time: > 30 minutes Discharge Instructions DIET: Follow Instructions for: Heart Healthy Diet Activities you can perform: Regular-No Restrictions Follow up Referrals: PCP Follow-up - 1 Week New Medications: Hydrocodone-Acetaminophen (Hydrocodone-Acetaminophen) 7.5-325 mg Tab 1 TAB PO Q6HR PRN for pain, #12 TAB Discontinued Medications: Lisinopril (Lisinopril) 10 Mg Tab 10 MG PO HS, #30 TAB 0 Refills Oxycodone ER (Oxycodone ER) 10 Mg Tab 10 MG PO Q12HR for Pain Management, TAB 0 Refills Ritu Gonzalez PA-C Jun 27, 2017 14:47
== END 2017-06-15 17:47 | disposition home or self-care (01) ==
LOC: NEPE 10:40 → NEDA 13:58 → NEPGCP 16:05
PROVIDERS: ADMIT Internal Medicine; ATTEND Internal Medicine
DX: R53.1 Weakness (principal); I10 Essential (primary) hypertension; I69.351 Hemiplegia and hemiparesis following cerebral infarction affecting right dominant side; R47.81 Slurred speech; G89.29 Other chronic pain; R29.6 Repeated falls; R42 Dizziness and giddiness; R05 Cough; M25.552 Pain in left hip; R55 Syncope and collapse; F17.200 Nicotine dependence, unspecified, uncomplicated
CPT/HCPCS: 70450; 71010; 73502; 80053; 80061; 81001; 82550; 82552; 83735; 84484; 85025; 85610; 85730; 92507; 92523; 93005; 93306; 93880; 96360; 96361; 97162; 97166; 97535; 99285; G0378; G8987; G8988; G8999; G9158; G9186; J7030